=== PATIENT | female | born 1985 | race Caucasian/White ===

== ENCOUNTER 2019-07-30 12:20 | Emergency (ER) | payer BC ==
[2019-07-30] MEDS ORDERED: PROCHLORPERAZINE INJ 5 MG/ML 2 ML VIAL IV ONE (12:25)
[2019-07-30] MEDS ORDERED: PROCHLORPERAZINE INJ 5 MG/ML 2 ML VIAL IV PRN ×2 (12:25)
--- NOTE | 2019-07-30 12:38 | ED ---
Complex/Multi-Sys Presentation - HPI Summary HPI Summary: 33 year old F presenting to [facility] from Dr. Law complains of headache, nausea , vomiting, and hypertension since 3 weeks ago, worse since today. The patient rates the pain 8/10 in severity. Symptoms aggravated by nothing. Symptoms alleviated by nothing. Patient states she was sent to the ED for an MRI. Patient is at [address] Law. - History Of Current Complaint Chief Complaint: EDHypertension Time Seen by Provider: 07/30/19 12:23 Hx Obtained From: Patient Onset/Duration: Still Present Timing: Constant Severity Currently: Severe Aggravating Factor(s): Nothing Alleviating Factor(s): Nothing - Allergies/Home Medications Allergies/Adverse Reactions: Allergies Allergy/AdvReac Type Severity Reaction Status Date / Time No Known Allergies Allergy Verified 08/02/13 15:07 PMH/Surg Hx/FS Hx/Imm Hx Respiratory History: Reports: Hx Pneumonia Sensory History: Reports: Hx Contacts or Glasses Opthamlomology History: Reports: Hx Contacts or Glasses Psychiatric History: Reports: Hx Anxiety, Hx Depression - Surgical History Surgery Procedure, Year, and Place: None - Immunization History Date of Tetanus Vaccine: Unknown Date of Influenza Vaccine: Unknown Infectious Disease History: No Infectious Disease History: Denies: Traveled Outside the [place] in Last 30 Days - Family History Known Family History: Positive: Cardiac Disease - father, Diabetes - father, Other - NEG: Cancer - Social History Hx Substance Use: No Substance Use Type: Reports: None Review of Systems Positive: Other - hypertension Positive: Vomiting, Nausea Positive: Headache All Other Systems Reviewed And Are Negative: Yes Physical Exam - Summary Physical Exam Summary: Appearance: The patient is well-nourished in no acute distress and in no acute pain. Skin: The skin is warm and dry, and skin color reflects adequate perfusion. HEENT: The head is normocephalic and atraumatic. The pupils are equal and reactive. The conjunctivae are clear and without drainage. Nares are patent and without drainage. Mouth reveals moist mucous membranes, and the throat is without erythema and exudate. The external ears are intact. The ear canals are patent and without drainage. The tympanic membranes are intact. Neck: The neck is supple with full range of motion and non-tender. There are no carotid bruits. There is no neck vein distension. Respiratory: Chest is non-tender. Lungs are clear to auscultation and breath sounds are symmetrical and equal. Cardiovascular: Heart is regular rate and rhythm. There is no murmur or rub auscultated. There is no peripheral edema and pulses are symmetrical and equal. Abdomen: The abdomen is soft and non-tender. There are normal bowel sounds heard in all four quadrants and there is no organomegaly palpated. Musculoskeletal: There is no back tenderness noted. Extremities are non-tender with full range of motion. There is good capillary refill. There is no peripheral edema or calf tenderness elicited. Neurological: Patient is alert and oriented to person, place and time. The patient has symmetrical motor strength in all four extremities. Cranial nerves are grossly intact. Deep tendon reflexes are symmetrical and equal in all four extremities. Psychiatric: The patient has an appropriate affect and does not exhibit any anxiety or depression. Triage Information Reviewed: Yes Vital Signs On Initial Exam: Initial Vitals Temp Pulse Resp BP Pulse Ox 98.2 F 112 20 156/116 98 07/30/19 12:21 07/30/19 12:21 07/30/19 12:21 07/30/19 12:21 07/30/19 12:21 Vital Signs Reviewed: Yes Diagnostics - Vital Signs Vital Signs Temp Pulse Resp BP Pulse Ox 07/30/19 12:21 98.2 F 112 20 156/116 98 - Laboratory Result Diagrams: 07/30/19 12:32 07/30/19 12:32 Lab Statement: Any lab studies that have been ordered have been reviewed, and results considered in the medical decision making process. - Additional Comments Diagnostic Additional Comments: Head MRI shows, per radiologist: NO VENOUS SINUS THROMBOSIS OR OCCLUSION. ED physician has reviewed this report. Brain MRI shows, per radiologist: UNREMARKABLE MRI OF THE BRAIN. THE PITUITARY IS FELT TO BE WITHIN PHYSIOLOGIC LIMITS FOR GRAVID FEMALE, WITHOUT EVIDENCE OF PITUITARY HEMORRHAGE. ED physician has reviewed this report. Re-Evaluation - Re-Evaluation First Eval Re-Evaluation Time: 14:14 Change: Unchanged Comment: heart tones are in the 140s per nurse Araiza Second Eval Re-Evaluation Time: 15:00 Change: Unchanged Comment: patient updated on plan of care Third Eval Re-Evaluation Time: 15:19 Change: Improved Comment: patient feels better after compazine. patient is agreeable to discharge Complex Multi-Symp Course/Dx Course Of Treatment: Ms. Truong was probable from Dr. Law's office. She had presented to him having been suffering from headaches, blurred vision and high blood pressure for a week or so. She reportedly had some sort of imaging recently that showed a problem with a pituitary and labs that ruled out preeclampsia or help syndrome. My understanding is she is only 22 weeks however. She was nontoxic on arrival but clearly appeared to be in pain. Her vitals are stable except that her blood pressure was markedly elevated. She was complaining of nausea and retching. She was given IV fluids and Compazine while the MRI and MRV that Dr. Law requested was obtained. Her labs and imaging studies were within normal limits. She got complete improvement with her symptomatology and her blood pressure improved. I spoke with Dr. Leyva of [facility] as she has been following with the midwives and Dr. Law. I will let her go for follow-up. - Diagnoses Provider Diagnoses: Headache - Physician Notifications Discussed Care Of Patient With: Molly Leyva Time Discussed With Above Provider: 15:01 Instructed by Provider To: Other - ANDRADE Lennon, states patient can be discharged Discharge ED - Sign-Out/Discharge Documenting (check all that apply): Patient Departure - Discharge Patient Received Moderate/Deep Sedation with Procedure: No - Discharge Plan Condition: Stable Disposition: HOME Prescriptions: Prochlorperazine TAB* [Compazine Tab*] 5 mg PO Q6H PRN #10 tab PRN Reason: Nausea/Vomiting Patient Education Materials: General Headache (ED) Forms: *Work Release Referrals: Molly Leyva MD [Medical Doctor] - 2 Days Additional Instructions: Follow up with OBGYN in 2-3 days. RETURN TO EMERGENCY DEPARTMENT FOR NEW OR WORSENING SYMPTOMS. - Billing Disposition and Condition Condition: STABLE Disposition: Home - Attestation Statements Document Initiated by Scribe: Yes Documenting Scribe: Lyudmila Esteves Provider For Whom Alexa is Documenting (Include Credential): Jonny Herrera MD Scribe Attestation: Lyudmila Srivastava, scribed for Jonny Herrera MD on 07/30/19 at 1739. Scribe Documentation Reviewed: Yes Provider Attestation: The documentation as recorded by the Lyudmila farnsworth accurately reflects the service I personally performed and the decisions made by me, Jonny Herrera MD Status of Scribe Document: Viewed
[2019-07-30 12:50] LABS: ABS Lymphocytes 1.2 10^3/ul (1.0-4.8); ABS Monocytes 0.5 10^3/ul (0-0.8); ABS Neutrophils 7.5 10^3/ul (1.5-7.7); Eosinophil % 0.3 %; Hematocrit 35 % (35-47); Hemoglobin 12.5 g/dL (12.0-16.0); Mean Corpuscular HGB Conc 35 g/dL (31-36); Mean Corpuscular Hemoglobin 33 pg (27-31); Mean Corpuscular Volume 92 fL (80-97); Mean Platelet Volume 8.3 fL (7.4-10.4); Platelet Count 227 10^3/uL (150-450); Red Blood Count 3.84 10^6 /uL (3.70-4.87); Red Cell Distribution Width 13 % (10-15); White Blood Count 9.2 10^3/uL (3.5-10.8)
[2019-07-30 13:10] LABS: Albumin 3.9 g/dL (3.2-5.2); Albumin/Globulin Ratio 1.4 (1-3); BUN/Creatinine Ratio 10.7 (8-20); C Reactive Protein 9.04 mg/L (<8.01); Calcium 8.9 mg/dL (8.6-10.3); EGFR African American 151.8 (>60); EGFR Non-African American 125.5 (>60); Globulin 2.7 g/dL (2-4); Potassium 3.2 mmol/L (3.5-5.0); Total Bilirubin 0.4 mg/dL (0.2-1.0); Total Protein 6.6 g/dL (6.4-8.9)
[2019-07-30] MEDS ORDERED: NS 0.9% 1000 ML** 1,000 ML IV ONE (13:56)
[2019-07-30 14:52] LABS: Urine Appearance Turbid; Urine Bacteria Absent (Absent); Urine Bilirubin Negative (Negative); Urine Blood Negative (Negative); Urine Color Yellow; Urine Glucose Negative (Negative); Urine Ketones Negative (Negative); Urine Nitrite Negative (Negative); Urine Protein Negative (Negative); Urine Red Blood Cell Absent (Absent); Urine Specific Gravity 1.013 (1.010-1.030); Urine Squamous Epithelial Cell Present (Absent); Urine Urobilinogen Negative (Negative); Urine White Blood Cell 1+(6-10/hpf) (Absent)
[2019-07-30 15:31] VITALS: BP 127/78
== END 2019-07-30 15:25 | disposition home or self-care (01) ==
LOC: ED 12:20
DX: R51 Headache (principal); F41.9 Anxiety disorder, unspecified; F32.9 Major depressive disorder, single episode, unspecified; Z79.899 Other long term (current) drug therapy; R93.0 Abnormal findings on diagnostic imaging of skull and head, not elsewhere classified
CPT/HCPCS: 36415; 70544; 70551; 80053; 81003; 81015; 85025; 86140; 87086; 96361; 96374; 99282; J0780